=== PATIENT | male | born 1965 | race Caucasian/White ===

== ENCOUNTER → 2016-11-21 | Outpatient (CLI) | payer BC ==
[~2016-11-21] MED LIST: NS 100 ML IV 100 ML IV ONE
--- NOTE | 2016-11-21 14:47 | CT ---
HISTORY: Left upper quadrant abdominal pain Study: CT abdomen pelvis with and without contrast Comparison: None Technique: Axial pre and post contrast images with coronal and sagittal reformats. Dose reduction pr ocedures were used with MA/kv adjusted for body size. Findings: The lung bases are clear. The liver, spleen, adrenal glands, and pancreas are within normal limits. No opaque stones are visible within the gallbladder. Tiny nonobstructing right renal calculi are pre sent. No right ureteral calculi are identified. There is fairly extensive perinephric stranding arou nd the left kidney there is mild hydroureteronephrosis proximal to a 2 millimeter calculus located a t the left ureterovesical junction. The appendix is normal. There are no findings suggestive of dive rticulitis or colitis. The abdominal aorta is normal. There are multiple but nonenlarged para-aortic lymph nodes present. They are of uncertain etiology and significance in this patient. No significan t mesenteric adenopathy is identified. No pelvic masses, pelvic fluid, or pelvic lymphadenopathy is identified. No bladder abnormality is identified. IMPRESSION: 2 millimeter obstructing distal left ureteral calculus located at the ureterovesical junction. Tiny nonobstructing right renal calculi Reported By:
== END ==
LOC: RAD 11:53
PROVIDERS: ATTEND Internal Medicine
DX: R10.84 Generalized abdominal pain (principal); R10.12 Left upper quadrant pain
CPT/HCPCS: 74178; A4222